=== PATIENT | female | born 1985 | race African-American/Black ===

== ENCOUNTER 2017-09-01 19:07 | Emergency (ER) | payer OTHER ==
[~2017-09-01] VITALS: Ht 160 cm; Wt 50.0 kg
[2017-09-01 20:35] LABS: BASOPHILS % 0.6 % (0.0-2.0); EOSINOPHILS % 1.6 % (0.0-5.0); HEMATOCRIT. 32.5 % (36.0-48.0); HEMOGLOBIN. 10.7 g/dL (12.0-16.0); MEAN CORPUSCULAR HEMOGLOBIN 27.7 pg (28.0-32.0); MEAN CORPUSCULAR VOLUME 84.2 fL (81.0-99.0); MEAN PLATELET VOLUME 7.3 fl (7.4-10.4); MONOCYTES % 8.8 % (2.0-8.0); PLATELET 331 x1000/uL (130-400); RED BLOOD CELL COUNT 3.86 mill/uL (4.2-5.4); RED CELL DISTRIBUTION WIDTH 14.5 % (11.6-14.6)
[2017-09-01 20:40] LABS: HCG SCREEN NEGATIVE
[2017-09-01 20:45] LABS: CHLORIDE 109 mEq/L (98-107); ETHANOL BLOOD < 10 mg/dL
[2017-09-01 21:40] VITALS: BP 90/47
== END 2017-09-01 22:28 | disposition home or self-care (01) ==
LOC: ER 19:18
DX: G93.40 Encephalopathy, unspecified (principal)
CPT/HCPCS: 36415; 80053; 80307; 80329; 84703; 85025; 99284; G0482